=== PATIENT | male | born 1945 | race African-American/Black ===

== ENCOUNTER 2017-04-13 09:42 | Emergency (ER) | payer OTHER ==
[2017-04-13 09:58] VITALS: BP 106/50; PULSE 61; TEMP 98.4; BMI 25.7
[2017-04-13] MEDS ORDERED: ALBUTEROL SO4 2.5/IPRATROPIUM 0.5 INH SOL 3 ML VIAL.NEB. NEB ONE ×2 (10:11→10:18)
--- NOTE | 2017-04-13 10:35 | PDOC ---
History of Present Illness - General Chief Complaint: Cold Symptoms Stated Complaint: FEVER Time Seen by Provider: 04/13/17 10:01 History Source: Patient Exam Limitations: No Limitations - History of Present Illness Initial Comments: 04/13/17 10:34 71 yr male with cough for 2 weeks fever last night, intermittent shortness of breath. no chest pain . Pt has no medical history no allergies. Past History - Past Medical History Allergies/Adverse Reactions: Allergies Allergy/AdvReac Type Severity Reaction Status Date / Time No Known Allergies Allergy Verified 04/13/17 09:47 Home Medications: Ambulatory Orders Albuterol Sulfate Inhaler - [Ventolin HFA Inhaler -] 1 - 2 inh PO Q4H #1 inhaler 04/13/17 Levofloxacin [Levaquin] 750 mg PO DAILY #5 tab 04/13/17 Prednisone [Deltasone -] 20 mg PO DAILY #7 tablet 04/13/17 Other medical history: denies - Psycho/Social/Smoking Cessation Hx Suicidal Ideation: No Smoking History: Never smoked Information on smoking cessation initiated: No Hx Alcohol Use: No Drug/Substance Use Hx: No Substance Use Type: None *Physical Exam - Vital Signs Last Vital Signs Temp Pulse Resp BP Pulse Ox 98.4 F 61 18 106/50 95 04/13/17 09:45 04/13/17 09:45 04/13/17 09:45 04/13/17 09:45 04/13/17 09:45 - Physical Exam General Appearance: Yes: Nourished, Appropriately Dressed HEENT: positive: EOMI, CHUCHO, Normal ENT Inspection, TMs Normal, Pharynx Normal Neck: positive: Supple. negative: Tender Respiratory/Chest: positive: Crackles (left lower base), Wheezing (mild expiratory ) Cardiovascular: positive: Regular Rhythm, Regular Rate Gastrointestinal/Abdominal: positive: Normal Bowel Sounds, Soft Musculoskeletal: positive: Normal Inspection Extremity: positive: Normal Capillary Refill, Normal Inspection, Normal Range of Motion Integumentary: positive: Normal Color, Dry, Warm Neurologic: positive: Fully Oriented, Alert, Normal Mood/Affect, Normal Response , Motor Strength 5/5 ED Treatment Course - RADIOLOGY Radiology Studies Ordered: Category Date Time Status CHEST PA & LAT [RAD] Stat Radiology 04/13/17 10:11 Completed - Medications Given in the ED: ED Medications Discontinued Medications Generic Name Dose Route Start Last Admin Trade Name Freq PRN Reason Stop Dose Admin Albuterol/Ipratropium 1 amp 04/13/17 10:11 04/13/17 10:31 Duoneb - NEB 04/13/17 10:12 1 amp ONCE ONE Administration Medical Decision Making - Medical Decision Making 04/13/17 10:39 cc: cough fever last night no chest pain speaking full sentences will get cxr pt was on antibiotics 2 weeks ago for URI states he continued to have the cough pt denies abd pain or urinary symptoms will give duoneb, 04/13/17 10:41 04/13/17 10:43 pulse ox 98 after duoneb on room air pt ambualtory steady gait without distress, pulse ox 97-98 on room air while ambulating *DC/Admit/Observation/Transfer Diagnosis at time of Disposition: Pneumonia Qualifiers: Pneumonia type: due to unspecified organism Laterality: left Lung location: lower lobe of lung Qualified Code(s): J18.1 - Lobar pneumonia, unspecified organism - Discharge Dispostion Disposition: HOME Condition at time of disposition: Good - Prescriptions Prescriptions: Prednisone [Deltasone -] 20 mg PO DAILY #7 tablet Levofloxacin [Levaquin] 750 mg PO DAILY #5 tab Albuterol Sulfate Inhaler - [Ventolin HFA Inhaler -] 1 - 2 inh PO Q4H #1 inhaler - Patient Instructions Additional Instructions: drink pleanty of water and get rest take the medication as directed Return to ER if any worsening symptoms chest pain, shortness of breath , difficulty breathing or speaking
== END 2017-04-13 11:06 | disposition home or self-care (01) ==
LOC: JERFT 09:42
PROC: 3E0F7GC Introduction of Other Therapeutic Substance into Respiratory Tract, Via Natural or Artificial Opening (ICD-10-PCS; principal; 2017-04-13)
DX: J18.1 Lobar pneumonia, unspecified organism (principal)
CPT/HCPCS: 71020-TC; 94640; 99281-25